=== PATIENT | male | born 1995 | race Two or more races ===

== ENCOUNTER 2019-06-23 19:23 | Emergency (ER) | payer MEDICAID ==
--- NOTE | 2019-06-23 19:39 | EDM.PDOC ---
ED HPI GENERAL MEDICAL PROBLEM - General Chief Complaint: ENT Problem Stated Complaint: EAR BUD STUCK IN RIGHT EAR Time Seen by Provider: 06/23/19 19:28 Source of Information: Reports: Patient, RN Notes Reviewed History Limitations: Reports: No Limitations - History of Present Illness INITIAL COMMENTS - FREE TEXT/NARRATIVE: Patient is a 23 [id number] who presents to the ED for the evaluation of a foreign body stuck in his right ear. The patient states that approximately 15 minutes prior to arrival to the ER, he was listening to music and the soft silicone ear bud became lodged in his right ear. He tried to remove this with a tweezers but several attempts failed, and he did not feel comfortable doing this on his own any longer. So he presents to the ER for removal. He denies any other symptoms. - Related Data Allergies Allergy/AdvReac Type Severity Reaction Status Date / Time No Known Allergies Allergy Verified 06/23/19 19:28 Home Meds: Home Meds . [No Known Home Meds] 06/23/19 [History] Past Medical History - Past Health History Medical/Surgical History: Denies Medical/Surgical History Social & Family History - Tobacco Use Smoking Status *Q: Never Smoker - Recreational Drug Use Recreational Drug Use: No ED ROS ENT - Review of Systems Review Of Systems: ROS reveals no pertinent complaints other than HPI. HEENT: Reports: Other (ear bud stuck in right ear canal) ED EXAM, ENT - Physical Exam Exam: See Below Exam Limited By: No Limitations General Appearance: Alert, WD/WN, No Apparent Distress Ears: Normal External Exam, Normal Canal, Hearing Grossly Normal, Normal TMs ( visualized after foreign body removed.), Canal Foreign Body (dark pereira ear bud lodged in R auditory canal, this obscured the view of the TM initially, after removal, the TM appears normal.) ED ENT PROCEDURES - Foreign Body Removal Indication:: Ear bud stuck in R ear canal Consent Obtained: Patient Performing Doctor:: Abril Mock Anesthesia Type: None Findings: Dark pereira rubber ear bud was removed without complication from the R ear canal. Complications: No Course - Vital Signs Last Recorded V/S: Last Vital Signs Temp 98.0 F 06/23/19 19:28 Pulse 73 06/23/19 19:28 Resp 15 06/23/19 19:28 BP 139/77 06/23/19 19:28 Pulse Ox 97 06/23/19 19:28 - Re-Assessments/Exams Free Text/Narrative Re-Assessment/Exam: 06/23/19 19:42 Patient presents to the ED for evaluation of a foreign body in his right ear. The ear bud was identified, and removed with a tweezers with no complications. Patient will be discharged home with general recommendations. Departure - Departure Time of Disposition: 19:37 Disposition: Home, Self-Care 01 Condition: Good Clinical Impression: Foreign body in ear Qualifiers: Encounter type: initial encounter Laterality: right Qualified Code(s): T16.1XXA - Foreign body in right ear, initial encounter - Discharge Information *PRESCRIPTION DRUG MONITORING PROGRAM REVIEWED*: No *COPY OF PRESCRIPTION DRUG MONITORING REPORT IN PATIENT KADEN: No Instructions: Ear Foreign Body, [id number] Referrals: PCP,None [Primary Care Provider] - Forms: ED Department Discharge Additional Instructions: You evaluated in the ER today for a foreign body in your right ear. The tip of an ear bud was extracted from your right ear canal. No complications are anticipated from the removal of the foreign body. Please return to the ER if your symptoms change or worsen.
== END 2019-06-23 19:45 | disposition home or self-care (01) ==
LOC: JD.ED 19:23
DX: T16.1XXA Foreign body in right ear, initial encounter (principal)
CPT/HCPCS: 69200; 99281; 99282